=== PATIENT | female | born 1980 | race Caucasian/White ===

== ENCOUNTER 2023-06-27 07:47 | Emergency (ER) | payer OTHER, SELFPAY ==
[2023-06-27 07:53] VITALS: BP 123/58; BMI 53.3
[2023-06-27 08:00] VITALS: BP 119/56
--- NOTE | 2023-06-27 08:00 | ED.GENMED ---
History of Present Illness
General
Chief Complaint: Weakness
Time Seen by Provider: 06/27/23 07:52
History of Present Illness
History of Present Illness:
42-year-old female presents to the emergency department via EMS for evaluation after a near syncopal event that occurred at work this morning. She is concerned that this could be related to recent change in her psychiatric medications, states she
discontinued Celexa recently in favor of a new antidepressant that she started yesterday, she is not certain what this medication is. Fills her prescriptions at [facility] in [place]. She reports that she walked into a patient's room
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 She feels back to normal at this time. Denies any associated chest pain, shortness of breath, heart palpitations,
recent fevers, or illicit substance use.
Review of Systems
Review of Systems
Allergies reviewed?: Yes
All Other Systems: ROS reviewed and negative except as documented in HPI and ROS
Phy Exam
Physical Exam
Physical Exam:
GEN: Well appearing, NAD, WDWN
HEENT: Oral mucosa moist, no scleral icterus, no nasal congestion
Cardiac: Regular rate and rhythm, no murmurs
Lung: No respiratory distress, no tachypnea
MSK: No gross deformity or injuries
Skin: Good color, no pallor or jaundice, no rashes
Neuro: AO x3; CN II-XII grossly intact. BUE strength 5/5 in all arroyo, sensation intact and symmetric. BLE strength 5/5 in all arroyo, sensation intact and symmetric
Psych: Calm, cooperative
Course
Orders/Labs/Results
Orders:
Orders
06/27/23 07:50
ECG [Electrocardiogram (*1)] Urgent
Reason for Study: Fatigue / Weakness
EKG- Treatment ONCE
Test Result ONCE
06/27/23 08:07
Complete Blood Count/With Diff Urgent
Comprehensive Metabolic Panel Urgent
HCG, Serum Qualitative Screen Urgent
Abnormal Lab Results
06/27/23
08:07
RBC 4.12 L 10^6/uL
(4.20-5.40)
MCH 31.3 H pg
(27.0-31.0)
MPV 11.3 H fL
(7.4-10.4)
Immature Gran % 0.6 H %
(0-0.5)
Carbon Dioxide 21 L mmol/L
(22-30)
BUN 21 H mg/dl
(7-17)
Glucose 157 H mg/dl
(70-99)
06/27/23 08:07
06/27/23 08:07
Vital Signs
Initial and Last Documented VS:
Initial Vital Signs
Temp Pulse Resp BP Pulse Ox
98.2 F 73 18 123/58 98
06/27/23 07:53 06/27/23 07:53 06/27/23 07:53 06/27/23 07:53 06/27/23 07:53
Last Documented Vital Signs
Temp Pulse Resp BP Pulse Ox
98.2 F 67 15 107/65 96
06/27/23 07:53 06/27/23 09:00 06/27/23 09:00 06/27/23 09:00 06/27/23 09:00
MDM/Problems Addressed
MDM/Problems Addressed:
Patient's workup is unremarkable, labs reassuring, EKG benign. Do not feel that her near syncopal event was secondary to her recent new antidepressant however she is uncertain what this drug is and her pharmacy was closed thus I cannot verify it.
Encouraged her to contact her primary prescriber tomorrow first thing, medically stable for discharge
Comment
Comment:
EKG independently interpreted by me shows a normal sinus rhythm at a rate of [address] changes concerning for ischemia, QTc of 423
*Critical Care Note
Total Time (30-74mins, 75-104mins- exclusive of procedures): Not Applicable
ED Attending Note
-
Portions of this chart may have been created with voice recognition software.� Occasional wrong word or��sound alike� substitutions may have occurred due to the inherent limitations of voice recognition software.
Discharge Plan
Departure
Patient Disposition: Home (Routine Discharge)
Date of Disposition: 06/27/23
Time of Disposition: 09:09
Patient with high blood pressure during this ER visit?: No
Discharge Problem:
Near syncope
Instructions: Near Fainting (DC)
Referrals:
REGINE WARREN [Other]
Stand Alone Forms: Return to Work
Activity Restrictions/Additional Instructions:
I do not suspect this event had anything to do with your new medication
Please contact your psychiatrist tomorrow to discuss whether or not you should continue taking the medication
Interventions
Interventions:
*Risk Screen - Suicide Last Done: 06/27/23 07:53
*General Assessment Last Done: 06/27/23 07:53
*Neglect/Abuse Screening Last Done: 06/27/23 07:53
ED- Fall Risk Assessment Last Done: 06/27/23 08:47
*ED COVID-19 Vaccine History Last Done: 06/27/23 07:53
*Nursing Disposition Last Done: 06/27/23 09:31
ED- Cardiac Assessment Last Done: 06/27/23 08:47
ED- Neurological Assessment Last Done: 06/27/23 08:47
ED- Pulmonary Assessment Last Done: 06/27/23 08:47
Discharge Date and Time
Discharge Date/Time: 06/27/23 09:31
Print Language: GREENLANDIC
[2023-06-27 08:15] LABS: % Basophils 0.6 % (0-2); % Eosinophils 1.6 % (0-6); % Immature Granulocytes 0.6 % (0-0.5); % Monocytes 5.1 % (1.7-9.3); % Neutrophils 62.1 % (42.2-75.2); Absolute Eosinophils 0.1 10^3/uL (0-0.7); Absolute Lymphocytes 2.1 10^3/uL (1.2-3.4); Absolute Monocytes 0.4 10^3/uL (0.1-0.6); Absolute Neutrophils 4.3 10^3/uL (1.4-6.5); Hematocrit 37.9 % (37.0-47.0); Hemoglobin 12.9 g/dL (12.0-16.0); Mean Corpuscular Hgb 31.3 pg (27.0-31.0); Mean Platelet Volume 11.3 fL (7.4-10.4); Nucleated Red Blood Cells % 0 %; Platelet Count 204 10^3/uL (130-400); Red Blood Cell Count 4.12 10^6/uL (4.20-5.40); Red Cell Dist. Width 12.5 % (11.5-14.5); White Blood Cell Count 6.9 10^3/uL (4.8-10.8)
[2023-06-27 08:27] LABS: HCG, Serum Qualitative Screen Negative
[2023-06-27 08:29] LABS: ALT (SGPT) 34 U/L (0-35); AST (SGOT) 27 U/L (14-36); Alkaline Phosphatase 84 U/L (38-126); Blood Urea Nitrogen 21 mg/dl (7-17); Calcium 9.3 mg/dl (8.4-10.2); Carbon Dioxide 21 mmol/L (22-30); Chloride 106 mmol/L (98-107); Estimated Creatinine Clearance > 125 ml/min; Glucose 157 mg/dl (70-99); Potassium 3.5 mmol/L (3.5-5.1); Sodium 138 mmol/L (135-145); Total Bilirubin 0.3 mg/dl (0.2-1.3); Total Protein 6.6 g/dl (6.3-8.2); eGFR > 60.00
[2023-06-27 09:00] VITALS: BP 107/65
== END 2023-06-27 09:31 | disposition home or self-care (01) ==
LOC: EMR 07:47
PROVIDERS: EMERGENCY PHYSICIAN Emergency Medicine
DX: R55 Syncope and collapse (principal)
CPT/HCPCS: 99283; 80053; 84703; 85025; 93005